=== PATIENT | female | born 1945 | race Caucasian/White ===

== ENCOUNTER 2022-05-19 14:00 | Outpatient (RCR) | payer MEDICARE, SELFPAY | END 2022-06-04 14:34 | disposition home or self-care (01) | LOC: PT.CARL 14:00 | PROVIDERS: Visit Provider Family Medicine | DX: M54.50 Low back pain, unspecified (principal); M25.551 Pain in right hip; M46.1 Sacroiliitis, not elsewhere classified | CPT/HCPCS: 97010; 97014; 97035; 97110; 97140; 97163; G0283 ==

== ENCOUNTER → 2022-10-13 07:54 | Outpatient (CLI) | payer MEDICARE, SELFPAY ==
--- NOTE | 2022-10-13 08:58 | CT_ITS ---
FINAL REPORT TECHNIQUE: Axial CT images were performed from the lung apices through the upper abdomen. Supine inspiration, supine expiration and prone inspiration high-resolution images were obtained. Coronal and sagittal reformats were submitted. This study was performed with techniques to keep radiation doses as low as reasonably achievable (ALARA). Individualized dose reduction techniques using automated exposure control or adjustment of mA and/or kV according to the patient's size were employed. CLINICAL HISTORY: . soa, nodule FINDINGS: There is no axillary adenopathy. There is no hilar or mediastinal mass or adenopathy. Heart size is normal. There is no pericardial or pleural effusion. Limited images of the upper abdomen show postoperative changes in the left upper quadrant. On the lung window images, there is a 3 mm lateral left upper lobe nodule image 20. No other mass or nodule is identified. There is no evidence of interstitial lung disease. There is no bronchiectasis. There is no evidence of air trapping. IMPRESSION: 3 mm lateral left upper lobe nodule. No other mass or nodule identified. No acute process. Reviewed, Interpreted and Dictated by Abhishek Rodriguez III, MD Transcribed by Viola Ivan Authenticated and [facility]
== END ==
PROVIDERS: PCP Family Medicine; Visit Provider Internal Medicine Pulmonary Disease
DX: R06.09 Other forms of dyspnea (principal); J84.9 Interstitial pulmonary disease, unspecified
CPT/HCPCS: 71250; 94060; 94618; 94726; 94729